=== PATIENT | female | born 1960 | race Caucasian/White ===

== ENCOUNTER 2022-01-03 15:34 | Outpatient (CLI) | payer BC ==
[2022-01-03 17:23] LABS: Hemoglobin 13.4 g/dL (12.0-15.5); Mean Corpuscular HGB CONC 33.2 g/dL (32.0-36.0); Mean Corpuscular Hemoglobin 30.7 pg (27.0-33.0); Mean Corpuscular Volume 92.7 fl (81.6-98.3); Mean Platelet Volume 9.9 fl (7.4-10.4); Platelet Count 344 10x3/uL (150-450); RBC Distribution Width 13.5 % (11.5-14.5); Red Blood Cell (RBC) Count 4.36 10x6/uL (3.90-5.03); White Blood Cell (WBC) Count 4.5 10x3/uL (3.5-10.5)
[2022-01-03 17:35] LABS: Anion Gap 14 mmol/L (10-20); BUN (Urea Nitrogen) 11 mg/dL (9.8-20.1); Calc. Creatinine Clearance 0 mL/min (70-130); Calcium 9.4 mg/dL (7.8-10.44); Carbon Dioxide 26 mmol/L (23-31); Chloride 104 mmol/L (98-107); Estimated GFR 82; Glucose 99 mg/dL (80-115); Potassium 4.1 mmol/L (3.5-5.1); Sodium 140 mmol/L (136-145)
== END 2022-01-03 15:35 | disposition home or self-care (01) ==
LOC: LABBT 15:34
PROVIDERS: ATTEND Neurological Surgery
DX: Z01.818 Encounter for other preprocedural examination (principal); M43.16 Spondylolisthesis, lumbar region
CPT/HCPCS: 80048; 85027; 93005; 93010

== ENCOUNTER 2022-01-07 06:57 | Observation (INO) | payer BC ==
[2022-01-07] MEDS ORDERED: Levofloxacin 500 mg/D5W 100 ml Premix Bag ONE (07:38)
[2022-01-07 08:28] LABS: SARS-CoV-2 NAA Rapid Test Not Detected (NotDetected)
[2022-01-07] MEDS ORDERED: fentaNYL Citrate/PF 100 MCG/2 ML SYRINGE ONE ×2 (08:55→10:57)
[2022-01-07] MEDS ORDERED: SUGAMMADEX SODIUM 200 MG/2 ML VIAL ONE (08:55)
[2022-01-07] MEDS ORDERED: Midazolam HCl 2 mg/2 ml Vial ONE (08:55)
[2022-01-07] MEDS ORDERED: Ketamine 50 MG/ML (10ML VIAL) ONE (08:55)
[2022-01-07] MEDS ORDERED: Famotidine/PF 20 mg/2ml Vial ONE (08:55)
[2022-01-07] MEDS ORDERED: Clindamycin/D5W 900 mg/50 ml Premix Bag ONE (08:56)
[2022-01-07] MEDS ORDERED: Dexamethasone 20 MG/5 ML VIAL ONE (09:05)
[2022-01-07] MEDS ORDERED: PROPOFOL 200 MG/20 ML VIAL ONE (09:05)
[2022-01-07] MEDS ORDERED: Ondansetron PF 4 MG/2 ML Vial ONE (09:05)
[2022-01-07] MEDS ORDERED: Metoclopramide HCl 10 MG/2 ML VIAL ONE (09:05)
[2022-01-07] MEDS ORDERED: PHENYLEPHRINE-NS 100 MCG/ML 10 ML SYRINGE ONE (09:05)
[2022-01-07] MEDS ORDERED: Rocuronium Bromide 10 MG/ML (10ML VIAL) ONE (09:05)
[2022-01-07] MEDS ORDERED: ePHEDrine 50 MG/ML VIAL ONE (09:05)
[2022-01-07] MEDS ORDERED: Promethazine HCl 25 MG/ML VIAL IVPB PRN (10:14)
[2022-01-07] MEDS ORDERED: Meperidine HCl/PF 25 MG/ML VIAL SLOW IVP PRN (10:14)
[2022-01-07] MEDS ORDERED: Promethazine HCl 25 MG/ML VIAL IM PRN (10:14)
[2022-01-07] MEDS ORDERED: HYDROmorphone 2 MG/ML VIAL SLOW IVP PRN (10:14)
[2022-01-07] MEDS ORDERED: Ondansetron HCl/PF 4 MG/2 ML Vial IVP PRN (10:14)
[2022-01-07] MEDS ORDERED: Mag-Al 1200 mg/1200 mg/30 ML UDCUP PO PRN (10:27)
[2022-01-07] MEDS ORDERED: Promethazine 25 MG TAB PO PRN (10:27)
[2022-01-07] MEDS ORDERED: Acetaminophen/Codeine 30-300mg Tablet PO PRN (10:27)
[2022-01-07] MEDS ORDERED: traMADol HCl 50 MG TAB PO PRN (10:27)
[2022-01-07] MEDS ORDERED: Milk Of Magnesia 30 ML UDCUP PO PRN (10:27)
[2022-01-07] MEDS ORDERED: diphenhydrAMINE 25 MG CAP PO PRN (10:27)
[2022-01-07] MEDS ORDERED: Ondansetron PF 4 MG/2 ML Vial IVP PRN (10:27)
[2022-01-07] MEDS ORDERED: Cyclobenzaprine 10 MG TAB PO PRN (10:27)
[2022-01-07] MEDS ORDERED: Morphine 4 MG/ML VIAL SLOW IVP PRN (11:09)
[2022-01-07 11:23] VITALS: BMI 34.3
[2022-01-07] MEDS: Sodium Chloride 0.9% 1,000 ML IV SCH ×2 (12:01→23:51)
[2022-01-07] MEDS: Clindamycin/D5W 900 MG in Premix Bag 1 BAG IVPB SCH (17:28)
[2022-01-07] MEDS: Acetaminophen/Codeine 30-300mg Tablet PO PRN ×2 (17:28→23:16)
[2022-01-07] MEDS ORDERED: FLU VACC QS2022-23(6MOS UP)/PF 60 MCG/0.5 ML SYRINGE IM ONE (18:45)
[2022-01-08] MEDS: Clindamycin/D5W 900 MG in Premix Bag 1 BAG IVPB SCH (01:22)
[2022-01-08] MEDS ORDERED: Lisinopril 20 MG TAB PO SCH (09:00)
[2022-01-08] MEDS: Acetaminophen/Codeine 30-300mg Tablet PO PRN ×2 (09:35→16:02)
[2022-01-08 12:08] VITALS: TEMP 97.9
[2022-01-08] MEDS: Sodium Chloride 0.9% 1,000 ML IV SCH (13:06)
[2022-01-08 15:55] VITALS: BP 115/78
== END 2022-01-08 16:55 | disposition home or self-care (01) ==
LOC: SDC 06:57 → SURG A 12:23
PROVIDERS: ADMIT Neurological Surgery; ATTEND Neurological Surgery
PROC: 0SG1071 Fusion of 2 or more Lumbar Vertebral Joints with Autologous Tissue Substitute, Posterior Approach, Posterior Column, Open Approach (ICD-10-PCS; principal; 2022-01-07)
DX: M47.816 Spondylosis without myelopathy or radiculopathy, lumbar region (principal); M48.062 Spinal stenosis, lumbar region with neurogenic claudication; M43.16 Spondylolisthesis, lumbar region; M06.9 Rheumatoid arthritis, unspecified; I10 Essential (primary) hypertension; E78.5 Hyperlipidemia, unspecified; E66.9 Obesity, unspecified; Z68.34 Body mass index [BMI] 34.0-34.9, adult; Z79.899 Other long term (current) drug therapy; Z88.0 Allergy status to penicillin; Z88.8 Allergy status to other drugs, medicaments and biological substances; Z20.822 Contact with and (suspected) exposure to COVID-19
CPT/HCPCS: C1713; C1768; C1776; J1100; J1956; J2250; J2270; J2405; J2704; J2765; J3370; J3490; S0028; U0002

== ENCOUNTER 2022-01-22 08:24 | Outpatient (CLI) | payer BC | END 2022-01-22 08:25 | disposition home or self-care (01) | LOC: TBSIIMAG 08:24 | PROVIDERS: ATTEND Neurological Surgery | DX: M43.16 Spondylolisthesis, lumbar region (principal); M51.36 Other intervertebral disc degeneration, lumbar region; Z98.890 Other specified postprocedural states | CPT/HCPCS: 72100 ==

== ENCOUNTER 2022-03-20 13:13 | Outpatient (CLI) | payer BC | END 2022-03-20 13:14 | disposition home or self-care (01) | LOC: TBSIIMAG 13:13 | PROVIDERS: ATTEND Neurological Surgery | DX: M47.816 Spondylosis without myelopathy or radiculopathy, lumbar region (principal); Z98.890 Other specified postprocedural states | CPT/HCPCS: 72100 ==

== ENCOUNTER 2022-06-24 06:45 | Inpatient (IN) | payer BC ==
[2022-06-19 15:45] VITALS: BMI 34.3
[2022-06-24 08:25] LABS: Mean Corpuscular HGB CONC 32.5 g/dL (32.0-36.0); Mean Corpuscular Hemoglobin 32.2 pg (27.0-31.0); Mean Corpuscular Volume 99.2 fl (78.0-98.0); Mean Platelet Volume 7.4 fL (7.4-10.4); Platelet Count 276 10x3/uL (130-400); RBC Distribution Width 12.9 % (11.5-14.5); Red Blood Cell (RBC) Count 4.03 mill/uL (4.20-5.40)
[2022-06-24 08:54] LABS: Anion Gap 11 mmol/L (10-20); BUN (Urea Nitrogen) 15 mg/dL (9.8-20.1); Calc. Creatinine Clearance 111 mL/min (70-130); Calcium 9.1 mg/dL (7.8-10.44); Carbon Dioxide 26 mmol/L (23-31); Chloride 107 mmol/L (98-107); Estimated GFR 91; Glucose 88 mg/dL (80-115); Potassium 4.2 mmol/L (3.5-5.1); Sodium 140 mmol/L (136-145)
[2022-06-24 09:07] LABS: Band 3 % (5-11); Eosinophils 1 % (0-10); Lymphocytes 35 % (21-51); MDiff Complete? YES; Monocytes 6 % (0-10); Neutrophil 41 % (42-75); Platelet Morphology Comment Appears Adequate; RBC Morphology Normal; Reactive Lymphocytes 14 % (0-10)
[2022-06-24] MEDS ORDERED: Levofloxacin 500 mg/D5W 100 ml Premix Bag ONE (09:35)
[2022-06-24] MEDS ORDERED: Clindamycin/D5W 900 mg/50 ml Premix Bag ONE (09:35)
[2022-06-24] MEDS ORDERED: Rocuronium Bromide 10 MG/ML (10ML VIAL) ONE (10:35)
[2022-06-24] MEDS ORDERED: Esmolol 100 MG/10 ML VIAL ONE (10:35)
[2022-06-24] MEDS ORDERED: Lidocaine 1% PF 5 ML VIAL ONE (10:35)
[2022-06-24] MEDS ORDERED: PROPOFOL 200 MG/20 ML VIAL ONE (10:35)
[2022-06-24] MEDS ORDERED: NEOSTIGMINE 3 MG/3 ML SYR 3 MG/3 ML SYRINGE ONE (10:35)
[2022-06-24] MEDS ORDERED: GLYCOPYRROLATE/PF 0.2 MG/ML VIAL ONE (10:35)
[2022-06-24] MEDS ORDERED: Ondansetron PF 4 MG/2 ML Vial ONE (10:35)
[2022-06-24] MEDS ORDERED: Promethazine HCl 25 MG/ML VIAL IM PRN (11:36)
[2022-06-24] MEDS ORDERED: Morphine 2 MG/ML VIAL SLOW IVP PRN (11:36)
[2022-06-24] MEDS ORDERED: Mag-Al 1200 mg/1200 mg/30 ML UDCUP PO PRN (11:36)
[2022-06-24] MEDS ORDERED: Acetaminophen/Codeine 30-300mg Tablet PO PRN ×2 (11:36)
[2022-06-24] MEDS ORDERED: Milk Of Magnesia 30 ML UDCUP PO PRN (11:36)
[2022-06-24] MEDS ORDERED: Ondansetron PF 4 MG/2 ML Vial IVP PRN (11:36)
[2022-06-24] MEDS ORDERED: diphenhydrAMINE 25 MG CAP PO PRN (11:36)
[2022-06-24] MEDS ORDERED: Cyclobenzaprine 10 MG TAB PO PRN (11:36)
[2022-06-24] MEDS ORDERED: traMADol HCl 50 MG TAB PO PRN (11:36)
[2022-06-24] MEDS ORDERED: Promethazine 25 MG TAB PO PRN (11:36)
[2022-06-24] MEDS ORDERED: KETAMINE 100 MG/ML (5ML VIAL) ONE (11:42)
[2022-06-24] MEDS ORDERED: Fentanyl 250 MCG/5 ML VIAL ONE (11:55)
[2022-06-24] MEDS ORDERED: HYDROmorphone 0.5 MG/0.5 ML SYRINGE ONE ×2 (12:06→12:22)
[2022-06-24] MEDS ORDERED: HYDROcodone/Acetaminophen 10/325 mg Tablet PO PRN (16:33)
[2022-06-24] MEDS: Sodium Chloride 0.9% 1,000 ML IV SCH (17:26)
[2022-06-24] MEDS: Clindamycin/D5W 900 MG in Premix Bag 1 BAG IVPB SCH (17:26)
[2022-06-24] MEDS: HYDROcodone/Acetaminophen 10/325 mg Tablet PO PRN (20:45)
[2022-06-24] MEDS ORDERED: Rosuvastatin 5 MG TAB PO SCH (21:00)
[2022-06-25] MEDS: Clindamycin/D5W 900 MG in Premix Bag 1 BAG IVPB SCH (02:12)
[2022-06-25] MEDS: HYDROcodone/Acetaminophen 10/325 mg Tablet PO PRN ×2 (02:21→09:59)
[2022-06-25] MEDS: Sodium Chloride 0.9% 1,000 ML IV SCH (02:22)
[2022-06-25 08:28] VITALS: BP 142/82; TEMP 98.4
[2022-06-25] MEDS ORDERED: Lisinopril 20 MG TAB PO SCH ×2 (09:00)
[2022-06-25] MEDS ORDERED: Calcium Carbonate 600 MG + Vit D TAB PO SCH (09:00)
[2022-06-25] MEDS ORDERED: Meloxicam 15 MG TAB PO SCH (09:00)
== END 2022-06-25 11:03 | disposition home or self-care (01) | DRG 472 ==
LOC: SDC 06:45 → SJJU 13:41
PROVIDERS: ADMIT Neurological Surgery; ATTEND Neurological Surgery
PROC: 0RG20A0 Fusion of 2 or more Cervical Vertebral Joints with Interbody Fusion Device, Anterior Approach, Anterior Column, Open Approach (ICD-10-PCS; principal; 2022-06-24)
PROC: 0RT30ZZ Resection of Cervical Vertebral Disc, Open Approach (ICD-10-PCS; 2022-06-24)
PROC: 01N10ZZ Release Cervical Nerve, Open Approach (ICD-10-PCS; 2022-06-24)
DX: M48.02 Spinal stenosis, cervical region (principal); M50.01 Cervical disc disorder with myelopathy, high cervical region; Z88.0 Allergy status to penicillin; Z88.8 Allergy status to other drugs, medicaments and biological substances; M06.9 Rheumatoid arthritis, unspecified; I10 Essential (primary) hypertension; E78.5 Hyperlipidemia, unspecified; G89.29 Other chronic pain
CPT/HCPCS: 36415; 80048; 85025; 93005; 93010; C1713; J1170; J1956; J2405; J2704; J3010; J3490; J7050

== ENCOUNTER 2022-07-10 12:23 | Outpatient (CLI) | payer BC | END 2022-07-10 12:24 | disposition home or self-care (01) | LOC: TBSIIMAG 12:23 | PROVIDERS: ATTEND Neurological Surgery | DX: M47.22 Other spondylosis with radiculopathy, cervical region (principal) | CPT/HCPCS: 72040 ==